=== PATIENT | female | born 1995 | race Hispanic/Latino ===

== ENCOUNTER 2018-02-27 23:33 | Emergency (ER) | payer MEDICAID ==
[~2018-02-27] VITALS: Ht 154.9 cm; Wt 45.4 kg
[2018-02-27 23:47] VITALS: BP 97/64
--- NOTE | 2018-02-27 23:59 | NUR ---
US CALL TO [facility] FOR US AT THIS TIME. MESSAGE LEFT FOR CALL BACK.
[2018-02-28] MEDS ORDERED: NS 1000ML 1,000 ML IV ONE
--- NOTE | 2018-02-28 00:04 | NUR ---
UA URINE COLLECTED AND TAKEN TO LAB AT THIS TIME.
[2018-02-28 00:08] LABS: BILIRUBIN,URINE NEGATIVE (NEGATIVE); UROBILINOGEN,URINE NORMAL (NEGATIVE)
[2018-02-28 00:09] LABS: APPEARANCE,URINE CLEAR (CLEAR); UA COLOR YELLOW (YELLOW)
--- NOTE | 2018-02-28 00:09 | NUR ---
ORTHOSTATIC BP LYIN/56 (72) SITTIN/66 (79) STANDIN/65 (77)
[2018-02-28] MEDS ORDERED: NS 1000ML 1,000 ML ONE (00:16)
[2018-02-28 00:19] VITALS: BP 96/65
--- NOTE | 2018-02-28 00:19 | NUR ---
US KENNETH CONTACTED AT THIS TIME, STATES SHE WILL ARRIVE SHORTLY TO TAKE PATIENT FOR US
[2018-02-28 00:22] LABS: BASOPHIL % 0.2 % (0.0-0.2); EOSINOPHIL # 0.1 10^3/uL (0.0-0.2); EOSINOPHIL % 0.6 % (0.0-5.0); HEMOGLOBIN 14.4 g/dL (12.0-15.0); LYMPHOCYTES # 2.3 10^3/uL (1.0-4.8); LYMPHOCYTES % 17.6 % (24.0-44.0); MEAN CELL HGB CONCENTRATION 35.8 g/dL (33-37); MEAN CORP VOLUME 89.3 fL (78-100); MEAN PLATELET VOLUME 10.2 fL (7.8-11.0); MONOCYTES # 0.7 10^3/uL (0.3-0.8); MONOCYTES % 5.2 % (5.0-12.0); NEUTROPHIL # 9.8 10^3/uL (1.8-7.7); NEUTROPHILS % 76.2 % (41.0-85.0); RED CELL DISTRIBUTION WIDTH 11.9 % (11.5-14.5); WHITE BLOOD CELL 12.9 10^3/uL (4.5-11.0)
--- NOTE | 2018-02-28 00:46 | NUR ---
[facility]IT [facility] IN ROOM TO TAKE PT FOR US AT THIS TIME.
[2018-02-28 01:06] LABS: CALCIUM 10.2 mg/dL (8.4-10.5); CARBON DIOXIDE 23.3 mmol/L (20.0-32)
--- NOTE | 2018-02-28 01:19 | NUR ---
ROOM PT BACK TO ROOM FROM US AT THIS TIME.
--- NOTE | 2018-02-28 01:50 | DIREP ---
PROCEDURE:US OB 1ST TRIMESTER COMPARISON:None. INDICATIONS:abd trauma TECHNIQUE:Transabdominal and endovaginal pelvic ultrasound examinations were performed. Endovaginal images were performed to optimally evaluate the and maternal adnexal structures. FINDINGS: GESTATIONAL SAC:Present and normal appearing. PLACENTA:No subchorionic hemorrhage. AMNIOTIC FLUID:Volume within normal limits. POLE:Present and normal appearing. CRL = 3.1 cm, corresponding to an EGA of 10 weeks 0 days. YOLK SAC:Present. CARDIAC ACTIVITY:Present. One hundred seventy-six bpm. UTERUS:Normal. OVARIES:Normal in size, shape, and echogenicity. There are no adnexal masses. CUL-DE-SAC:Normal. US CLAIRE:09/26/2018 OTHER:Negative. CONCLUSION:1st trimester intrauterine gestation. Dictated by: Lewis Sandoval M.D. on 02/28/2018 at 01:46 AM
--- NOTE | 2018-02-28 02:05 | ER.PDOC ---
General Chief Complaint: Abdomen Pain Stated Complaint: <20 WEEKS,FALL Time seen by MD: 00:02 Source: patient Exam Limitations: no limitations History of Present Illness Initial Comments 12 wks c/o light headed when stands up. 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 No palpitations. Had abd pain, stood up, blacked out, fell onto bed abd first. Awoke and continued with ab pain.No vag bleeding. No N/V. Timing/Duration: 1 hour Severity/Quality: moderate Radiation: no radiation Associated Symptoms: denies symptoms Allergies: Coded Allergies: Penicillins (Verified Allergy, Severe, Hives, 09/22/13) Home Meds No Active Prescriptions or Reported Meds Vital Signs First Vital Signs Date Time Temp Pulse Resp B/P (MAP) Pulse Ox O2 Delivery O2 Flow Rate FiO2 02/27/18 23:44 98.4 84 16 99 Room Air 98.4 02/27/18 23:47 97/64 (75) Last Vital Signs Date Time Temp Pulse Resp B/P (MAP) Pulse Ox O2 Delivery O2 Flow Rate FiO2 02/28/18 00:19 75 18 96/65 (75) 99 02/27/18 23:47 98.4 Room Air 98.4 Past Medical History Medical History: no pertinent history Surgical History: no surgical history LMP (females 10-50): Social History Smoking: non-smoker Alcohol Use: none Drug Use: none Constitutional: see HPI EENTM: no symptoms reported Respiratory: no symptoms reported Cardiovascular: no symptoms reported Gastrointestinal: see HPI Genitourinary: no symptoms reported Musculoskeletal: no symptoms reported All Other Systems: Reviewed and Negative Physical Exam General Appearance: No Apparent Distress, WD/WN HEENT: PERRL/EOMI, Normal ENT Inspection Neck: Non-Tender, Full Range of Motion Respiratory: chest non-tender, lungs clear, normal breath sounds, no respiratory distress Cardiovascular: Normal Peripheral Pulses, Regular Rate, Rhythm, No Edema, No Gallop Gastrointestinal: Normal Bowel Sounds, No Pulsatile Mass, Tenderness ( suprapubic) Back: Normal Inspection, No CVA Tenderness Extremities: Normal Range of Motion, Non-Tender, Normal Inspection Neurologic/Psychiatric: polisher dial II-XII NML as Tested, No Motor/Sensory Deficits, Normal Mood/Affect, Oriented x 3 Skin: Normal Color, Warm/Dry Lymphatic: No Adenopathy Results/Orders Results/Orders Laboratory Tests Test 02/27/18 23:57 Urine Collection Type CCMS Urine Color YELLOW (YELLOW) Urine Appearance CLEAR (CLEAR) Urine Bilirubin NEGATIVE MG/DL (NEGATIVE) Urine Ketones 5 mg/dL (NEGATIVE) Urine Specific [place] 1.020 (1.005-1.035) Urine pH 6.5 (5.0-6.0) Urine Protein NEGATIVE (NEGATIVE) Urine Urobilinogen NORMAL (NEGATIVE) Urine Nitrate NEGATIVE (NEGATIVE) Urine Leukocyte Esterase NEGATIVE (NEGATIVE) Urine Blood NEGATIVE (NEGATIVE) Urine Glucose NORMAL (NEGATIVE) Administered Medications Medications (Trade) Dose Ordered Sig/Juventino Route PRN Reason Start Time Stop Time Status Last Admin Dose Admin Sodium Chloride 1,000 ml @ 1,200 mls/hr Q50M ONCE IV 02/28/18 00:00 02/28/18 00:49 DC 02/28/18 00:24 Progress Progress labs nml. US viable 10 wk single IUP. Ortho VS nml. Given NS 1 L bolus. Course Vitals & review Data Vital Sign - Last 24 Hours 02/27/18 02/27/18 02/27/18 02/28/18 23:44 23:44 23:47 00:19 Temp 98.4 98.4 98.4 98.4 98.4 98.4 Pulse 84 84 84 75 Resp 16 16 16 18 B/P (MAP) 97/64 (75) 96/65 (75) Pulse Ox 99 99 99 O2 Delivery Room Air Room Air Laboratory Tests Test 02/27/18 00:15 02/27/18 23:57 White Blood Count 12.9 10^3/uL Red Blood Count 4.50 10^6/uL Hemoglobin 14.4 g/dL Hematocrit 40.2 % Mean Corpuscular Volume 89.3 fL Mean Corpuscular Hemoglobin 32.0 pg Mean Corpuscular Hemoglobin Concent 35.8 g/dL Red Cell Distribution Width 11.9 % Platelet Count 266 10^3/uL Mean Platelet Volume 10.2 fL Neutrophils (%) (Auto) 76.2 % Lymphocytes (%) (Auto) 17.6 % Monocytes (%) (Auto) 5.2 % Neutrophils # (Auto) 9.8 10^3/uL Lymphocytes # (Auto) 2.3 10^3/uL Monocytes # (Auto) 0.7 10^3/uL Absolute Immature Granulocyte (auto 0.02 10^3 u/L Eosinophils % 0.6 % Basophils % 0.2 % Basophils # 0.0 10^3/uL Eosinophil Count 0.1 10^3/uL Sodium Level 137 mmol/L Potassium Level 3.5 mmol/L Chloride Level 100.0 mmol/L Carbon Dioxide Level 23.3 mmol/L Anion Gap 17.2 Blood Urea Nitrogen 6 mg/dL Creatinine 0.64 mg/dL Estimated GFR () 141.7 BUN/Creatinine Ratio 9.0 Glucose Level 83 mg/dL Calcium Level 10.2 mg/dL Total Bilirubin 0.4 mg/dL Aspartate Amino Transf (AST/SGOT) 21 U/L Alanine Aminotransferase (ALT/SGPT) 23 U/L Alkaline Phosphatase 44 U/L Total Protein 8.6 g/dL Albumin 4.5 g/dL Globulin 4.1 Human Chorionic Gonadotropin, Quant 226103 mIU/mL 17-Hydroxycorticosteroids . Percent Immature Gran (Cell Imm) 0.20 % Urine Collection Type CCMS Urine Color YELLOW Urine Appearance CLEAR Urine Bilirubin NEGATIVE MG/DL Urine Ketones 5 mg/dL Urine Specific [place] 1.020 Urine pH 6.5 Urine Protein NEGATIVE Urine Urobilinogen NORMAL Urine Nitrate NEGATIVE Urine Leukocyte Esterase NEGATIVE Urine Blood NEGATIVE Urine Glucose NORMAL Departure Time of Disposition: 02:09 Disposition: 01 HOME, SELF-CARE Impression: Primary Impression: Abdominal pain Additional Impression: First trimester Condition: Stable Patient Instructions: Abdominal Pain During Referrals: FRANK APONTE MD (PCP) PRIMARY CARE PROVIDER Additional Instructions: See your doctor Friday for recheck. Return if worse. Scripts No Active Prescriptions or Reported Meds Duration or Time Spent with Pa: 90 Problem Qualifiers EVELYNE RÍOS DO Feb 28, 2018 02:04
[2018-02-28 03:00] VITALS: BP 96/65
== END 2018-02-28 02:56 | disposition home or self-care (01) ==
LOC: ER 23:33
DX: O26.891 Other specified pregnancy related conditions, first trimester (principal); R10.2 Pelvic and perineal pain; R10.9 Unspecified abdominal pain; Z3A.12 12 weeks gestation of pregnancy; Z88.0 Allergy status to penicillin
CPT/HCPCS: 36415; 76801; 76817; 80053; 81002; 83491; 84702; 85025; 96360; 96361; 99285; J7030

== ENCOUNTER → 2018-03-04 | Outpatient (CLI) | payer MEDICAID ==
--- NOTE | 2018-03-04 14:54 | DIREP ---
PROCEDURE:US OB 1ST TRIMESTER COMPARISON:[facility], US, US OB 1ST TRI TRANS ABD, 02/28/2018, 00:57 AM. INDICATIONS:12 WK IUP, DATES SIZES TECHNIQUE:Transabdominal and endovaginal pelvic ultrasound examinations were performed. Endovaginal images were performed to optimally evaluate the and maternal adnexal structures. FINDINGS: LMP: 11/16/2017 CLINICAL GA: 15 weeks 3 days CLINICAL CLAIRE: 08/23/2018 GESTATIONAL SAC:Present and normal appearing. PLACENTA:No subchorionic hemorrhage. AMNIOTIC FLUID:Volume within normal limits. POLE:Present and normal appearing. CRL = 3.8 cm, corresponding to an EGA of 10 weeks5 days. YOLK SAC:Present. CARDIAC ACTIVITY:Present. 168 bpm. UTERUS:Normal. Measures 11.3 x 10.0 x 5.7 cm. OVARIES:Normal in size, shape, and echogenicity. The right measures 3.0 x 1.8 x 2.8 cm. The left measures 3.0 x 2.0 x 3.0 cm. There are no adnexal masses. CUL-DE-SAC:No significant fluid present. US CLAIRE:09/25/2018 OTHER:Negative. CONCLUSION:Viable intrauterine gestation of estimated age 10 weeks 5 days. No abnormalities demonstrated. Dictated by: [facility] Phys[facility] on 03/04/2018 at 02:40 PM ld
== END | disposition home or self-care (01) ==
LOC: RAD 13:40
PROVIDERS: ATTEND Nurse Practitioner Women's Health
DX: Z34.81 Encounter for supervision of other normal pregnancy, first trimester (principal); Z3A.12 12 weeks gestation of pregnancy
CPT/HCPCS: 76801; 76817

== ENCOUNTER → 2018-04-22 | Outpatient (CLI) | payer OTHER ==
--- NOTE | 2018-04-22 16:47 | DIREP ---
PROCEDURE:OBSTETRICAL ULTRASOUND, 2nd AND 3rd TRIMESTER TECHNIQUE:Transabdominal ultrasound of the pelvic contents was performed. COMPARISON:[facility], US, US OB 1ST TRI TRANS ABD, 03/04/2018, 01:38 PM. [facility], US, US OB 1ST TRI TRANS ABD, 02/28/2018, 00:57 AM. INDICATIONS:18 WEEK IUP FINDINGS: NUMBER:Armstrong. POSITION:Breech AMNIOTIC FLUID VOLUME:Largest vertical pocket - 5.3 cm (normal is 2-10 cm). PLACENTA:Posterior, low-lying. CERVIX:3.4 cm length. HEART RATE:148 bpm BIPARIETAL DIAMETER:3.8 cm (17 W 3 D), 45.0 percentile HEAD CIRCUMFERENCE:14.8 cm (18 W 0 D), 44.2 percentile ABD CIRCUMFERENCE:11.9 cm (17 W 2 D), 54.0 percentile FEMUR LENGTH:2.4 cm (16 W 6 D), 27.3 percentile ESTIMATED WEIGHT:197 gm (0 lb, 7oz), 32.0 percentile ULTRASOUND GA:17 W 4 D ULTRASOUND CLAIRE:September 26, 2018 By first trimester ultrasound on 03/04/2018 CLINICAL GA:17 W 5 D CLINICAL CLAIRE:September 25, 2018 ANATOMY CEREBELLUM:17.5 mm NUCHAL FOLD:6.0 mm CISTERNA MAGNA:5.4 mm LATERAL CEREBRAL VENTRICLES:4.4 mm CHOROID PLEXUS:Normal. MIDLINE FALX:Normal. CAVUM SEPTUM PELLUCIDUM:Not well seen. SPINE:Visualized portions are within normal limits. HEART:Normal. UPPER LIP:Normal. STOMACH:Present. KIDNEYS:Normal - no hydronephrosis. BLADDER:Normal. UMBILICAL CORD INSERTION:Normal. CORD VESSEL NUMBER:Normal 3 vessel cord. EXTREMITIES:Present. CONCLUSION: 1. The fetus is in breech presentation. 2. The placenta is low-lying, but appears to be clear of the internal cervical os. Third trimester follow-up is recommended to exclude the possibility of placenta previa. 3. Viable intrauterine . 4. No anomalies detected on today's examination. 5. biometrics suggest a gestational age of approximately 17 W 4 D, with an Estimated Weight (EFW) of 197 gm (0 lb, 7oz). 6. Percentile growth calculations based on first trimester sonogram. 7. There has been appropriate interval growth as compared with the original ultrasound with this . Dictated by: JAMAR Physician on 04/22/2018 at 03:11 PM ld
== END | disposition home or self-care (01) ==
LOC: RAD 14:02
PROVIDERS: ATTEND Nurse Practitioner Women's Health
DX: Z34.82 Encounter for supervision of other normal pregnancy, second trimester (principal); Z3A.17 17 weeks gestation of pregnancy
CPT/HCPCS: 76805

== ENCOUNTER 2018-05-15 01:15 | Observation (INO) | payer OTHER ==
[~2018-05-15] VITALS: Ht 157.5 cm; Wt 48.5 kg
[2018-05-15 01:40] VITALS: BP 126/69
--- NOTE | 2018-05-15 01:54 | NUR ---
22 Y.O. with 22 2/7 week IUP to ER8 with c/o sudden-onset of lower abdominal, suprapubic cramping that started @ approx 2340 tonight. Denies LOF or vag bleeding. Reports decreased movment. CCUA collected and sent to lab. Rates pain 05/13.
--- NOTE | 2018-05-15 01:58 | NUR ---
Pt states that the pain starts in lower back and radiates toward the hips and suprapubic area.
--- NOTE | 2018-05-15 02:20 | NUR ---
Occasional UC and uterine irritability noted.
[2018-05-15 02:23] LABS: BILIRUBIN,URINE NEGATIVE (NEGATIVE); UROBILINOGEN,URINE NORMAL (NEGATIVE)
--- NOTE | 2018-05-15 02:30 | NUR ---
Three to four ucs and mild to mod irritability noted in past hour.
[2018-05-15 02:40] LABS: APPEARANCE,URINE CLEAR (CLEAR); UA COLOR YELLOW (YELLOW)
--- NOTE | 2018-05-15 02:41 | NUR ---
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
--- NOTE | 2018-05-15 02:54 | NUR ---
Pt informed of plan of care. Pt reports pain is improving and becoming more intermittent in nature. Pt denies any recent insult or injury to abdomen, falls, or trauma. Pt is not as restless and is more talkative with her significant other.
--- NOTE | 2018-05-15 02:58 | NUR ---
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 She stated they can a qualitative radha but need clarification on if Dr Agarwal wants quantitative send-out test done. Will clarify when CBC results are phoned to him.
[2018-05-15 03:08] LABS: BASOPHIL % 0.2 % (0.0-0.2); EOSINOPHIL # 0.1 10^3/uL (0.0-0.2); EOSINOPHIL % 0.6 % (0.0-5.0); HEMOGLOBIN 11.2 g/dL (12.0-15.0); LYMPHOCYTES # 2.1 10^3/uL (1.0-4.8); LYMPHOCYTES % 19.7 % (24.0-44.0); MEAN CELL HGB 32.6 pg (26-34); MEAN CELL HGB CONCENTRATION 34.5 g/dL (33-37); MEAN CORP VOLUME 94.5 fL (78-100); MEAN PLATELET VOLUME 9.7 fL (7.8-11.0); MONOCYTES # 0.7 10^3/uL (0.3-0.8); MONOCYTES % 6.7 % (5.0-12.0); NEUTROPHIL # 7.6 10^3/uL (1.8-7.7); NEUTROPHILS % 72.1 % (41.0-85.0); RED CELL DISTRIBUTION WIDTH 13.7 % (11.5-14.5); WHITE BLOOD CELL 10.5 10^3/uL (4.5-11.0)
--- NOTE | 2018-05-15 03:17 | NUR ---
Phoned Dr Agarwal and informed him of CBC results: H/H 11.2/32.5, WBC 10.5, plt 242; and pt reports she if feeling slightly improved. Rec'd order to give [place] 5/325 and PO hydrate. Clarified berylauer-betke order and he stated he wants qualitative which the lab can do here; and notify him of results.
[2018-05-15] MEDS ORDERED: NORCO 5MG PO ONE ×2 (03:21→03:30)
--- NOTE | 2018-05-15 03:28 | NUR ---
[place] 5/325 x one tab PO. PO hydration provided.
--- NOTE | 2018-05-15 03:30 | NUR ---
Five ucs noted in past hour.
--- NOTE | 2018-05-15 03:33 | NUR ---
Pt is sitting up drinking water and talking and smiling with SO.
--- NOTE | 2018-05-15 03:45 | NUR ---
PO hydration refreshed.
--- NOTE | 2018-05-15 04:09 | NUR ---
Phoned Dr Agarwal and informed him of positive [place] test on [facility]; also informed him that pt reports she is feeling improved. He stated to take her to OB obervation for continuous toco and she may have regular diet and PO hydration.
--- NOTE | 2018-05-15 04:11 | NUR ---
Notified lab to perform qualitative kleihauer-betke send out test.
--- NOTE | 2018-05-15 10:02 | DIREP ---
PROCEDURE:OBSTETRICAL ULTRASOUND, 2nd AND 3rd TRIMESTER TECHNIQUE:Transabdominal ultrasound of the pelvic contents was performed. COMPARISON:[facility], US, US OB 2 3TRI DETAILED TRANSABD, 04/22/2018, 02:22 PM. [facility], US, US OB 1ST TRI TRANS ABD, 03/04/2018, 01:38 PM. [facility], US, US OB 1ST TRI TRANS ABD, 02/28/2018, 00:57 AM. INDICATIONS:POSS PLACENTAL ABRUPTION TECHNIQUE: Transabdominal sonography of the gravid uterus was performed FINDINGS: NUMBER:Armstrong. POSITION:Breech AMNIOTIC FLUID VOLUME:IRAIDA - 21.4 cm PLACENTA:Posterior, with no evidence of placenta previa. Small subchorionic hemorrhage noted on image number 20 of 31. CERVIX:3.0 cm length. The cervix appears closed. HEART RATE:145 bpm BIPARIETAL DIAMETER:5.0 cm (21 W 1 D), 55.2 percentile HEAD CIRCUMFERENCE:18.8 cm (21 W 0 D), 47.2 percentile ABD CIRCUMFERENCE:16.5 cm (21 W 2 D), 62.2 percentile FEMUR LENGTH:3.5 cm (20 W 5 D), 39.7 percentile ESTIMATED WEIGHT:411 gm (0 lb, 14oz), 50.2 percentile ULTRASOUND GA:21 W 2 D ULTRASOUND CLAIRE:September 23, 2018 By first trimester ultrasound on 03/04/2018 CLINICAL GA: 21 W 0 D CLINICAL CLAIRE: September 25, 2018. Survey anatomic evaluation was not performed. CONCLUSION: The fetus is in breech presentation. Viable intrauterine . No anomalies detected on today's examination. Small subchorionic hemorrhage identified, measuring 1.7 x 1.3 x 1.1 cm. biometrics suggest a gestational age of approximately 21 W 2 D, with an Estimated Weight (EFW) of 411 gm (0 lb, 14oz). Percentile growth calculations based on first trimester sonogram. There has been appropriate interval growth as compared with the original ultrasound with this . Dictated by: JAMAR Physician on 05/15/2018 at 09:45 AM ld
[2018-05-15 14:27] LABS: HEMOGLOBIN 10.5 g/dL (12.0-15.0); MEAN CELL HGB 32.1 pg (26-34); MEAN CELL HGB CONCENTRATION 33.7 g/dL (33-37); MEAN CORP VOLUME 95.4 fL (78-100); MEAN PLATELET VOLUME 9.4 fL (7.8-11.0); RED CELL DISTRIBUTION WIDTH 13.8 % (11.5-14.5); WHITE BLOOD CELL 8.9 10^3/uL (4.5-11.0)
--- NOTE | 2018-05-15 16:08 | PCM.HP ---
OB-Chief Complaint and HPI Date/Diagnosis Date: May 15, 2018 Time: 15:54 Admit Dx: (1) 22 weeks gestation of ICD Codes: Z3A.22 - 22 weeks gestation of SNOMED: 05764968 (2) Placental abruption in second trimester ICD Codes: O45.92 - Premature separation of placenta, unspecified, second trimester SNOMED: 526329565 Chief Complaint/History(PI) : 1 Para: 0 EDC: Sep 17, 2018 EGA: 22w1d Reason for admission: other (Abdominal pain) Admission Nurse Assessment Rev: No History of Present Abnormal Findings: This patient is a 22yo at 22w1d who presented to triage complaining of new onset severe abdoinal pain and tenderness that began near midnight 05/14/18 she denies fevers, chills, nausea, or vomiting. She denies any recent abdominal trauma, falls, or motor vehicle accidents. She states that she has felt less movement since the pain began. Past Family/Social History Patient History: No Family History of: Alzheimer's disease Asthma Cerebrovascular disorder Chronic obstructive pulmonary disease Congestive heart failure Diabetes insipidus Diabetes mellitus Hypertension Parkinson's disease Blood Type: A+ Rubella: immune RPR/VDRL: Negative GBS Status: Unknown HBsAG: Negative OB EXAM Physical Exam Vital Signs: Temperature: 98.6, Source: Oral, Respiratory Rate: 22, BP: 126/69 , Pulse Oximetry: 102, Weight: 107 Vital Signs Date Time Temp Pulse Resp B/P (MAP) Pulse Ox O2 Delivery O2 Flow Rate FiO2 05/15/18 05:23 98.6 102 22 99 Room Air 05/15/18 01:40 126/69 (88) Allergies Coded Allergies Type Severity Reaction Last Updated Verified Penicillins Allergy Severe Hives 09/22/13 Yes HEENT: NCAT Lungs: Clear Abdomen: Gravid, Other (uterus is diffusely tender to palpation) Cervical Dilatation: None Effacement: 0% Station: -3 Contractions on Admission: >10 Minutes Apart Intensity: Moderate OB Assessment and Plan Assessment/Plan Reason for admission: other (severe abdominal pain) Plan: Expectant Management Assessment/Plan Summary: 22yo at 22w1d with uterine tenderness secondary to mild placental abruption. I counseled the patient at length regarding the diagnosis, explaining that there is limited ability to diagnose a concealed abruption. The stability of her hemoglobin, platelets and coagulation studies suggest that if she does have an abruption it is stable at this time. I counseled her that the abruption may worsen, so she could return to triage if her pain gets worse, if she begins to have bleeding, or if she feels decreased movement. I explained that due to immaturity, no treatment is able for the fetus at this point in the , and any delivery before 23-24 weeks would be for a stillbirth. If she were to make it to 23-24 weeks. -Plan is for discharge home, will follow up in clinic this week. LABS LAB RESULTS Laboratory Tests 05/15/18 00:00: Fibrinogen 235, Urine Collection Type UNKNOWN, Urine Color YELLOW, Urine Appearance CLEAR, Urine Bilirubin NEGATIVE, Urine Ketones NEGATIVE, Urine Specific [place] 1.010, Urine pH 7, Urine Protein NEGATIVE, Urine Urobilinogen NORMAL, Urine Nitrate NEGATIVE, Urine Leukocyte Esterase NEGATIVE, Urine Blood NEGATIVE, Urine Glucose NORMAL, Urine Opiates, Qualitative NEGATIVE, Urine Methadone, Qualitative , Urine Amphetamine Qualitative NEGATIVE, Urine Barbiturates, Qualitative NEGATIVE, Urine Phencyclidine Screen NEGATIVE, Urine MDMA (Ecstasy), Qualitative , Urine Benzodiazepines Screen NEGATIVE, Urine Cocaine Qualitative NEGATIVE, Ur Tetrahydrocannabinol (THC) Scrn NEGATIVE 05/15/18 03:00: White Blood Count 10.5, Red Blood Count 3.44L, Hemoglobin 11.2L, Hematocrit 32.5L, Mean Corpuscular Volume 94.5, Mean Corpuscular Hemoglobin 32.6, Mean Corpuscular Hemoglobin Concent 34.5, Red Cell Distribution Width 13.7, Platelet Count 242, Mean Platelet Volume 9.7, Neutrophils (%) (Auto) 72.1, Lymphocytes (% ) (Auto) 19.7L, Monocytes (%) (Auto) 6.7, Neutrophils # (Auto) 7.6, Lymphocytes # (Auto) 2.1, Monocytes # (Auto) 0.7, Absolute Immature Granulocyte (auto 0.07, Eosinophils % 0.6, Basophils % 0.2, Basophils # 0.0, Eosinophil Count 0.1, Percent Immature Gran (Cell Imm) 0.70H 05/15/18 08:33: Prothrombin Time 9.5L, Prothrombin Time INR (Non-Therap) 1.0, Activated Partial Thromboplast Time 24.5L, D-Dimer 1.24*H 05/15/18 14:22: White Blood Count 8.9, Red Blood Count 3.27L, Hemoglobin 10.5L, Hematocrit 31.2L , Mean Corpuscular Volume 95.4, Mean Corpuscular Hemoglobin 32.1, Mean Corpuscular Hemoglobin Concent 33.7, Red Cell Distribution Width 13.8, Platelet Count 224, Mean Platelet Volume 9.4, Prothrombin Time 9.3L, Prothrombin Time INR (Non-Therap) 0.9, Activated Partial Thromboplast Time 24.2L, D-Dimer 1.03*H An ultrasound was ordered, with findings including: NUMBER:Armstrong. POSITION:Breech AMNIOTIC FLUID VOLUME:IRAIDA - 21.4 cm PLACENTA:Posterior, with no evidence of placenta previa. Small subchorionic hemorrhage noted on image number 20 of 31. CERVIX:3.0 cm length. The cervix appears closed. HEART RATE:145 bpm MENA WALTERS MD May 15, 2018 16:08
[2018-05-15 16:44] VITALS: BP 103/76
== END 2018-05-15 17:30 | disposition home or self-care (01) ==
LOC: ER 01:15 → LND 04:26 → EDPENDDISTM 16:40
PROVIDERS: ADMIT Obstetrics & Gynecology; ATTEND Obstetrics & Gynecology
DX: O45.92 Premature separation of placenta, unspecified, second trimester (principal); Z3A.22 22 weeks gestation of pregnancy; Z88.0 Allergy status to penicillin
CPT/HCPCS: 36415; 76805; 76825; 80307; 81002; 85025; 85027; 85370; 85379 ×2; 85610 ×2; 85730 ×2; G0378 ×13

== ENCOUNTER → 2018-05-22 | Outpatient (CLI) | payer OTHER ==
--- NOTE | 2018-05-22 15:14 | DIREP ---
PROCEDURE:OBSTETRICAL ULTRASOUND, 2nd AND 3rd TRIMESTER TECHNIQUE:Transabdominal ultrasound of the pelvic contents was performed. COMPARISON:[facility], , US OB LIMITED, 05/15/2018, 09:12 AM. [facility], , OB 2 3TRI DETAILED TRANSABD, 04/22/2018, 02:22 PM. [facility], , US OB 1ST TRI TRANS ABD, 03/04/2018, 01:38 PM. [facility], , US OB 1ST TRI TRANS ABD, 02/28/2018, 00:57 AM. INDICATIONS:LOW LYING PLACENTA TECHNIQUE: Transabdominal sonography of the gravid uterus was performed FINDINGS: NUMBER:Armstrong. POSITION:Cephalic AMNIOTIC FLUID VOLUME:IRAIDA - 14.9 cm PLACENTA:Posterior, no previa. The inferior edge of the placenta is greater than 2 cm from the internal os on the provided images although there is a myometrial contraction noted on the provided images. CERVIX:Normal transabdominal appearance. HEART RATE:145 bpm BIPARIETAL DIAMETER:5.3 cm (22 W 1 D), 48.3 percentile HEAD CIRCUMFERENCE:20.1 cm (22 W 1 D), 49.0 percentile ABD CIRCUMFERENCE:17.4 cm (22 W 1 D), 52.6 percentile FEMUR LENGTH:3.7 cm (21 W 3 D), 35.8 percentile ESTIMATED WEIGHT:478.4 gm (1 lb, 1oz), 49.5 percentile ULTRASOUND GA:22 W 1 D ULTRASOUND CLAIRE:September 24, 2018 CLINICAL GA: 22 W 0 D CLINICAL CLAIRE: September 25, 2018 *Confirmed by 1st trimester ultrasound (03/04/2018). Survey anatomic evaluation was not performed. CONCLUSION: 1. Single live intrauterine with appropriate interval growth. 2. No anomalies detected on today's examination. 3. biometrics suggest a gestational age of approximately 22 W 1 D, with an Estimated Weight (EFW) of 478.4 gm (1 lb, 1oz). Dictated by: JAMAR Physician on 05/22/2018 at 11:53 AM ac
== END | disposition home or self-care (01) ==
LOC: RAD 09:49
PROVIDERS: ATTEND Nurse Practitioner Women's Health
DX: Z34.82 Encounter for supervision of other normal pregnancy, second trimester (principal); Z3A.22 22 weeks gestation of pregnancy
CPT/HCPCS: 76816

== ENCOUNTER 2018-06-05 16:53 | Observation (INO) | payer OTHER ==
[2018-06-05 17:48] LABS: BILIRUBIN,URINE NEGATIVE (NEGATIVE); UROBILINOGEN,URINE NORMAL (NEGATIVE)
[2018-06-05 18:02] LABS: APPEARANCE,URINE HAZY (CLEAR); UA COLOR YELLOW (YELLOW)
[2018-06-05 19:58] VITALS: BP 99/54
== END 2018-06-05 19:35 | disposition home or self-care (01) ==
LOC: ATP 16:53 → EDPENDDISTM 19:35
PROVIDERS: ADMIT Obstetrics & Gynecology; ATTEND Obstetrics & Gynecology
DX: O62.9 Abnormality of forces of labor, unspecified (principal); Z3A.25 25 weeks gestation of pregnancy
CPT/HCPCS: 76825; 80307; 81000; G0378 ×3

== ENCOUNTER → 2018-07-01 | Outpatient (CLI) | payer OTHER ==
[2018-07-01 15:26] LABS: BASOPHIL % 0.2 % (0.0-0.2); EOSINOPHIL # 0.1 10^3/uL (0.0-0.2); HEMOGLOBIN 11.1 g/dL (12.0-15.0); LYMPHOCYTES # 1.7 10^3/uL (1.0-4.8); LYMPHOCYTES % 17.3 % (24.0-44.0); MEAN CELL HGB 32.9 pg (26-34); MEAN CELL HGB CONCENTRATION 33.3 g/dL (33-37); MEAN CORP VOLUME 98.8 fL (78-100); MEAN PLATELET VOLUME 8.8 fL (7.8-11.0); MONOCYTES # 0.6 10^3/uL (0.3-0.8); MONOCYTES % 6.3 % (5.0-12.0); NEUTROPHIL # 7.3 10^3/uL (1.8-7.7); NEUTROPHILS % 74.6 % (41.0-85.0); RED CELL DISTRIBUTION WIDTH 13.1 % (11.5-14.5); WHITE BLOOD CELL 9.8 10^3/uL (4.5-11.0)
== END | disposition home or self-care (01) ==
LOC: LAB 15:04
PROVIDERS: ATTEND Nurse Practitioner Women's Health
DX: Z34.02 Encounter for supervision of normal first pregnancy, second trimester (principal); Z3A.27 27 weeks gestation of pregnancy
CPT/HCPCS: 36415; 85025

== ENCOUNTER 2018-08-13 11:57 | Emergency (ER) | payer OTHER ==
[~2018-08-13] VITALS: Ht 162.6 cm; Wt 59.0 kg
--- NOTE | 2018-08-13 12:37 | NUR ---
arrival patient arrived via pov with complaints of left sided weakness upon awakening x 2 days pt placed on monitor pt 35 weeks heart tones 181 and strong
--- NOTE | 2018-08-13 12:41 | ER.PDOC ---
General Chief Complaint: Requesting Medical Care Stated Complaint: LEFT SIDE NUMBNESS,SWELLING TRAVEL OUT OF US: No Time seen by MD: 12:38 Source: patient Exam Limitations: no limitations History of Present Illness Initial Comments Left side numbness since this morning. She felt weak earlier on but is just numb now. Patient is 35 weeks . Severity: mild Associated Symptoms: denies symptoms Allergies: Coded Allergies: Penicillins (Verified Allergy, Severe, Hives, 09/22/13) Home Meds No Active Prescriptions or Reported Meds Past Medical History Medical History: no pertinent history Surgical History: tonsillectomy Social History Drug Use: none Review of Systems Constitutional: no symptoms reported EENTM: no symptoms reported Respiratory: no symptoms reported Cardiovascular: no symptoms reported Gastrointestinal: no symptoms reported Psychiatric/Neurological: see HPI All Other Systems: Reviewed and Negative Physical Exam General Appearance: No Apparent Distress, WD/WN EENT: eyes nml inspection Neck: Non-Tender, Full Range of Motion, Supple, Normal Inspection Respiratory: chest non-tender, lungs clear, normal breath sounds, no respiratory distress CVS: reg rate & rhythm, no murmur, no gallop, pulses nml, nml capillary refill Gastrointestinal: Normal Bowel Sounds, No Pulsatile Mass, Non Tender, Other ( gravid uterus) Back: Normal Inspection Extremities: Normal Range of Motion 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 as 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 Skin: Normal Color Results/Orders Results/Orders Laboratory Tests Test 08/13/18 12:44 White Blood Count 8.0 10^3/uL (4.5-11.0) Red Blood Count 3.55 10^6/uL (4.00-5.20) Hemoglobin 12.0 g/dL (12.0-15.0) Hematocrit 34.4 % (36.0-46.0) Mean Corpuscular Volume 96.9 fL (78-100) Mean Corpuscular Hemoglobin 33.8 pg (26-34) Mean Corpuscular Hemoglobin Concent 34.9 g/dL (33-37) Red Cell Distribution Width 12.7 % (11.5-14.5) Platelet Count 251 10^3/uL (150-400) Mean Platelet Volume 9.3 fL (7.8-11.0) Neutrophils (%) (Auto) 72.4 % (41.0-85.0) Lymphocytes (%) (Auto) 18.9 % (24.0-44.0) Monocytes (%) (Auto) 6.6 % (5.0-12.0) Neutrophils # (Auto) 5.8 10^3/uL (1.8-7.7) Lymphocytes # (Auto) 1.5 10^3/uL (1.0-4.8) Monocytes # (Auto) 0.5 10^3/uL (0.3-0.8) Absolute Immature Granulocyte (auto 0.07 10^3 u/L (0-2) Eosinophils % 1.1 % (0.0-5.0) Basophils % 0.1 % (0.0-0.2) Basophils # 0.0 10^3/uL (0.0-0.1) Eosinophil Count 0.1 10^3/uL (0.0-0.2) Sodium Level 139 mmol/L (132-145) Potassium Level 3.7 mmol/L (3.6-5.2) Chloride Level 104.0 mmol/L (96-109) Carbon Dioxide Level 23.4 mmol/L (20.0-32) Anion Gap 15.3 Blood Urea Nitrogen 7 mg/dL (7-18) Creatinine 0.57 mg/dL (0.59-1.40) Estimated GFR () 160.5 (>/=60) BUN/Creatinine Ratio 12.0 Glucose Level 98 mg/dL (70-110) Calcium Level 8.7 mg/dL (8.4-10.5) Total Bilirubin 0.2 mg/dL (0.2-1.0) Aspartate Amino Transf (AST/SGOT) 15 U/L (0-35) Alanine Aminotransferase (ALT/SGPT) 15 U/L (12-78) Alkaline Phosphatase 127 U/L (50-136) Total Protein 6.5 g/dL (6.4-8.2) Albumin 3.0 g/dL (3.4-5.0) Globulin 3.5 Percent Immature Gran (Cell Imm) 0.90 % (0.00-0.50) Progress Progress Spoke to Dr. Amaya and patient will be discharged but she goes to OB to be admitted. EKG/XRAY/CT/US CT Comments: Normal CT head Departure Time of Disposition: 15:50 Disposition: 01 HOME, SELF-CARE Impression: Primary Impression: Numbness Condition: Improved Referrals: FRANK APONTE MD (PCP) PRIMARY CARE PROVIDER Additional Instructions: Go to OB for Dr. Amaya. Scripts No Active Prescriptions or Reported Meds Duration or Time Spent with Pa: 2 hours LENNY ELKINS MD Aug 13, 2018 12:41
--- NOTE | 2018-08-13 12:50 | PCM.EKG ---
[facility] Test Date: 2018-08-13 Test Time: 12:49:52 Pat Name: JEFF MOORE Department: Room: Gender: F Pharmacy Ancillary: : 1995 Requested By: LENNY ELKINS Order Number: [id number] Reading MD: Measurements Intervals [place] Rate: 99 P: 63 DC: 130 QRS: 70 QRSD: 74 T: 27 QT: 334 QTc: 428 Interpretive Statements Normal sinus rhythm Nonspecific T wave abnormality Abnormal ECG No previous ECG available for comparison Please click the below link to view image of tracing.
[2018-08-13 12:51] LABS: BASOPHIL % 0.1 % (0.0-0.2); EOSINOPHIL # 0.1 10^3/uL (0.0-0.2); EOSINOPHIL % 1.1 % (0.0-5.0); LYMPHOCYTES # 1.5 10^3/uL (1.0-4.8); LYMPHOCYTES % 18.9 % (24.0-44.0); MEAN CELL HGB 33.8 pg (26-34); MEAN CELL HGB CONCENTRATION 34.9 g/dL (33-37); MEAN CORP VOLUME 96.9 fL (78-100); MEAN PLATELET VOLUME 9.3 fL (7.8-11.0); MONOCYTES # 0.5 10^3/uL (0.3-0.8); MONOCYTES % 6.6 % (5.0-12.0); NEUTROPHIL # 5.8 10^3/uL (1.8-7.7); NEUTROPHILS % 72.4 % (41.0-85.0); RED CELL DISTRIBUTION WIDTH 12.7 % (11.5-14.5)
[2018-08-13 13:09] LABS: CALCIUM 8.7 mg/dL (8.4-10.5); CARBON DIOXIDE 23.4 mmol/L (20.0-32)
--- NOTE | 2018-08-13 14:00 | NUR ---
DR MUKESH CONCEPCIONA ON PHONE WITH DR MAYORGA
[2018-08-13 15:00] VITALS: BP 105/59
--- NOTE | 2018-08-13 15:04 | DIREP ---
PROCEDURE:CT HEAD OR BRAIN W/O CONTRAST COMPARISON:[facility], CT, CT HEAD BRAIN W/O CONTRAST, 05/16/2017, 09:56 PM. INDICATIONS:Left sided numbness TECHNIQUE:CT images were created without intravenous contrast. FINDINGS: VENTRICLES:The ventricles are normal in size and configuration. CEREBRUM:Normal cerebral morphology with appropriate villarreal white matter differentiation. CEREBELLUM:Negative. BRAINSTEM:Negative. BASAL CISTERNS:Negative. HEMORRHAGE:No MASS LESION:No ACUTE INFARCT:No SKULL:Normal. SINUSES:Normal. OTHER:None CONCLUSION:Normal examination. Dictated by: Jorge L Caldera M.D. on 08/13/2018 at 03:02 PM
--- NOTE | 2018-08-13 15:44 | NUR ---
DR MAYORGA CALL TO DR MAYORGA OFFICE AT THIS TIME. AIDAN STATES DR MAYORGA IS DELIVERING A BABY AT THIS TIME. DR ELKINS NOTIFIED.
--- NOTE | 2018-08-13 15:46 | NUR ---
DR MUKESH CONCEPCIONA ON PHONE WITH DR MAYORGA
[2018-08-13 16:06] VITALS: BP 113/59
== END 2018-08-13 15:56 | disposition home or self-care (01) ==
LOC: ER 11:57
DX: O26.893 Other specified pregnancy related conditions, third trimester (principal); R20.0 Anesthesia of skin; Z88.0 Allergy status to penicillin; Z90.89 Acquired absence of other organs; Z3A.35 35 weeks gestation of pregnancy
CPT/HCPCS: 36415; 70450; 80053; 85025; 93005; 99284

== ENCOUNTER 2018-08-13 16:01 | Observation (INO) | payer OTHER ==
[~2018-08-13] VITALS: Ht 154.9 cm; Wt 59.0 kg
[2018-08-13 17:26] LABS: UA COLOR YELLOW (YELLOW)
[2018-08-13 17:27] LABS: APPEARANCE,URINE SLIGHTLY HAZY (CLEAR); BILIRUBIN,URINE NEGATIVE (NEGATIVE)
[2018-08-13 17:28] LABS: UROBILINOGEN,URINE NEGATIVE (NEGATIVE)
[2018-08-13 17:45] VITALS: BP 114/71
== END 2018-08-13 18:00 | disposition home or self-care (01) ==
LOC: ATP 16:01 → EDPENDDISTM 17:45
PROVIDERS: ADMIT Obstetrics & Gynecology; ATTEND Obstetrics & Gynecology
DX: O26.893 Other specified pregnancy related conditions, third trimester (principal); R20.0 Anesthesia of skin; Z3A.35 35 weeks gestation of pregnancy
CPT/HCPCS: 80307; 81000; G0378 ×2

== ENCOUNTER → 2018-08-19 | Outpatient (CLI) | payer OTHER ==
[2018-08-19 12:45] LABS: BASOPHIL % 0.3 % (0.0-0.2); EOSINOPHIL # 0.1 10^3/uL (0.0-0.2); HEMOGLOBIN 12.4 g/dL (12.0-15.0); LYMPHOCYTES # 1.7 10^3/uL (1.0-4.8); LYMPHOCYTES % 20.8 % (24.0-44.0); MEAN CELL HGB 33.3 pg (26-34); MEAN CELL HGB CONCENTRATION 34.3 g/dL (33-37); MEAN PLATELET VOLUME 9.6 fL (7.8-11.0); MONOCYTES # 0.7 10^3/uL (0.3-0.8); MONOCYTES % 8.4 % (5.0-12.0); NEUTROPHIL # 5.5 10^3/uL (1.8-7.7); NEUTROPHILS % 68.7 % (41.0-85.0); RED CELL DISTRIBUTION WIDTH 12.7 % (11.5-14.5)
== END | disposition home or self-care (01) ==
LOC: LAB 11:59
PROVIDERS: ATTEND Nurse Practitioner Women's Health
DX: Z34.03 Encounter for supervision of normal first pregnancy, third trimester (principal); Z3A.36 36 weeks gestation of pregnancy
CPT/HCPCS: 36415; 85025; 86318; 86592; 87081

== ENCOUNTER → 2018-08-24 | Outpatient (CLI) | payer OTHER ==
--- NOTE | 2018-08-24 14:28 | DIREP ---
[facility], , OB 2 3TRI DETAILED TRANSABD, 04/22/2018, 02:22 PM. PROCEDURE:OBSTETRICAL ULTRASOUND, 2nd AND 3rd TRIMESTER TECHNIQUE:Transabdominal ultrasound of the pelvic contents was performed. COMPARISON:[facility], OB LIMITED, 05/22/2018, 10:49 AM. [facility], OB LIMITED, 05/15/2018, 09:12 AM. [facility], OB 1ST TRI TRANS ABD, 03/04/2018, 01:38 PM. [facility], OB 1ST TRI TRANS ABD, 02/28/2018, 00:57 AM. INDICATIONS:CHECK PLACENTA, [place], EFW, GROWTH TECHNIQUE: Transabdominal sonography of the gravid uterus was performed FINDINGS: NUMBER:[place]. POSITION:Cephalic AMNIOTIC FLUID VOLUME:Largest vertical pocket - 5.5 cm (normal is 2-8 cm). PLACENTA:Posterior, with no evidence of placenta previa. CERVIX:Normal transabdominal assessment. HEART RATE:122 bpm BIPARIETAL DIAMETER:8.8 cm (36 W 1 D), 61.0 percentile HEAD CIRCUMFERENCE:32.3 cm (36 W 0 D), 42.5 percentile ABD CIRCUMFERENCE:31.6 cm (35 W 5 D), 62.0 percentile FEMUR LENGTH:6.8 cm (34 W 5 D), 29.1 percentile ESTIMATED WEIGHT:2688 gm (5 lb, 15oz), 62.6 percentile ULTRASOUND GA:35 W 5 D ULTRASOUND CLAIRE:September 23, 2018 By first trimester ultrasound on 03/04/2018 CLINICAL GA: 35 W 3 D CLINICAL CLAIRE: September 25, 2018 Survey anatomic evaluation was not performed. CONCLUSION: 1. Single live intrauterine with appropriate interval growth. 2. No anomalies detected on today's examination. 3. biometrics suggest a gestational age of approximately 35 W 5 D, with an Estimated Weight (EFW) of 2688 gm (5 lb, 15oz). Dictated by: JAMAR Physician on 08/24/2018 at 02:12 PM ld
== END | disposition home or self-care (01) ==
LOC: RAD 13:31
PROVIDERS: ATTEND Nurse Practitioner Women's Health
DX: Z34.83 Encounter for supervision of other normal pregnancy, third trimester (principal); Z3A.35 35 weeks gestation of pregnancy
CPT/HCPCS: 76816